=== PATIENT | male | born 1950 | race Caucasian/White ===

== ENCOUNTER 2016-11-12 15:35 | Emergency (ER) | payer BC ==
[~2016-11-12] VITALS: Ht 193 cm; Wt 116.9 kg
[2016-11-12] MEDS ORDERED: HYDROcodone/APAP 5/325 TABLET PO ONE (16:30)
[2016-11-12] MEDS ORDERED: KETOROLAC 30 MG/1 ML IM ONE (16:30)
[2016-11-12] MEDS ORDERED: KETOROLAC 30 MG/1 ML ONE (17:25)
[2016-11-12] MEDS ORDERED: HYDROcodone/APAP 5/325 TABLET ONE (17:25)
[2016-11-12 17:54] VITALS: BP 151/114
== END 2016-11-12 18:03 | disposition home or self-care (01) ==
LOC: ED 17:57
DX: S39.012A Strain of muscle, fascia and tendon of lower back, initial encounter (principal); I10 Essential (primary) hypertension; Z85.46 Personal history of malignant neoplasm of prostate; X58.XXXA Exposure to other specified factors, initial encounter; Y93.89 Activity, other specified; Y92.89 Other specified places as the place of occurrence of the external cause; Y99.8 Other external cause status
CPT/HCPCS: 72110; 96372; 99284; J1885